=== PATIENT | female | born 1985 | race Caucasian/White ===

== ENCOUNTER 2021-03-24 08:28 | Emergency (ER) | payer MEDICAID, SELFPAY ==
[2021-03-24 08:29] VITALS: BP 148/111; PULSE 83; RESP 18; TEMP 36.6; O2SAT 99; BMI 32.3
--- NOTE | 2021-03-24 08:48 | RAD_ITS ---
STUDY: X-RAY - RIGHT WRIST REASON FOR EXAM: Female, 35 years old. Injury/Pain TECHNIQUE: 3 view(s) of the wrist were obtained. COMPARISON: None. FINDINGS: Normal visualized distal radius and ulna. Normal radiocarpal articulation. Normal distal radioulnar articulation. Normal carpal bones. Normal carpal articulations. Normal carpometacarpal articulation of the thumb. Normal second through fifth carpometacarpal articulations. Normal visualized metacarpal bones. The soft tissue structures are unremarkable. RAD/Wrist min 3 Views IMPRESSION: Normal x-ray examination of the wrist. Electronically Signed: Austin Price MD at 9:34 EDT , Service support ,
--- NOTE | 2021-03-24 08:49 | EX.ED.UPPERE ---
HPI History of Present Illness Chief Complaint: Upper Extremity Injury Informant: patient Onset/Context/Timing Onset: Yesterday Context: Gradual Onset Timing: Continuous Quality of Pain: Stabbing and Throbbing Worsened by: Nothing Relieved by: Nothing Associated Symptoms Associated Symptoms: Positive for Parasthesia Narrative Narrative: Patient presents with pain into her right wrist and right hand area that began yesterday. Patient states the pain is worse today. Patient denies any trauma or injury. Patient states the pain radiates up her arm to her shoulder. Patient admits to some numbness and tingling over her right hand and all of her fingers. Patient states she is unable to make a fist due to the pain. Patient denies any true weakness however. PFSH PFSH no medical history Home Medications naproxen 500 mg PO BID PRN #20 tab 03/24/21 [Rx Last Taken Unknown] Allergy/AdvReac Type Severity Reaction Status Date / Time No Known Allergies Allergy Verified 03/24/21 08:31 Surgical History (Updated 03/24/21 @ 08:[address] Sree Auguste DO) History of section Social History Smoking Status: Current every day smoker ROS ROS ED Constitutional Constitutional ED: Denies chills or fever(s) Eyes Eyes: Denies blurry vision or change in vision ENT ENT ED: Denies rhinorrhea or sore throat Cardiovascular Cardiovascular: Denies chest pain or palpitations Respiratory/Chest Respiratory/Chest: Denies cough or dyspnea Gastrointestinal Gastrointestinal: Denies nausea or vomiting Genitourinary Genitourinary ED: Denies dysuria or hematuria Musculoskeletal Musculoskeletal: Denies back pain or neck pain Integumentary Denies abscess or rash Neurologic Neurologic: Reports paresthesias RUE (Right hand); Denies headache(s) or weakness Allergic/Immunologic Allergic/Immunologic ED: Denies mouth swelling or urticaria EXAM Physical Exam Const Vital Signs: 03/24/21 08:29 Temperature 97.9 F Temperature Source Temporal Pulse Rate 83 Respiratory Rate 18 Blood Pressure 148/111 H Blood Pressure Mean 123 Pulse Ox 99 Oxygen Delivery Method Room Air Positive well nourished, well developed and obese General Appearance ED: well developed Nutritional Appearance: obese Neck full ROM and supple Extremity Extremity Narrative: There is tenderness over the right wrist and right hand area. There is no edema or ecchymosis. There is no deformity noted. Range of motion was limited all motions of the right hand and wrist secondary to pain. There is a positive Phalen's test. There is positive Tinel's sign at the wrist over the median nerve. There is also a positive Tinel's sign at the elbow over the ulnar nerve. Radial pulses are equal bilaterally. Capillary refill is less than 2 seconds in all digits. Neuro oriented x3, CN's II-XII intact bilaterally, moves all extremities and no focal motor deficits Neuro Narrative: There is decreased sensation to light touch in the right hand distal to the wrist including the radial, median, and ulnar areas. Sensorium / Orientation: alert Sensory Exam: sensory level loss detected Psych Mood & Affect: anxious MDM MDM MDM Narrative Medical decision making narrative: Patient was given a dose of [place] here. X-rays of the right wrist were obtained. There are 3 views. On my interpretation, there is no acute fracture. There is no dislocation. There is minimal soft tissue swelling. Radiologist also interpreted the x-rays and agrees. Patient was given a Velcro wrist splint. Patient was given a prescription for Naprosyn. Patient was instructed to ice and elevate the right wrist. Patient was instructed to follow-up with her primary care physician in 5 to 7 days for further evaluation. Patient understood and was agreeable with the plan. All questions were answered. Discharge Plan Triage Chief Complaint: Upper Extremity Injury ED Provider: Sree Auguste Dx/Rx/DC Orders Clinical Impression: Carpal tunnel syndrome of right wrist Prescriptions: New naproxen 500 MG tablet 500 mg PO BID PRN Qty: 20 RF: 0 Primary Care Provider: Reina Frye Referrals: Reina Frye MD [Primary Care Provider] - 3-5 Days Disposition Disposition: Home, self care
[2021-03-24] MEDS: HYDROcodone Bitartrate/Apap 5/325 Tablet PO (08:52)
[2021-03-24 10:02] VITALS: PULSE 84; RESP 16; O2SAT 98
== END 2021-03-24 10:03 | disposition home or self-care (01) ==
LOC: ED 09:22
PROVIDERS: Emergency Provider Emergency Medicine; PCP Internal Medicine
DX: G56.01 Carpal tunnel syndrome, right upper limb (principal); E66.9 Obesity, unspecified; F17.200 Nicotine dependence, unspecified, uncomplicated
CPT/HCPCS: 73110; 99283

== ENCOUNTER → 2023-10-20 | Outpatient (CLI) | payer MEDICAID, SELFPAY ==
[2023-10-20 16:13] LABS: Absolute Lymphocyte Count 0.96 X10^3/uL (0.83-4.51); Absolute Neutrophil Count 3.3 X10^3/uL (2.0-7.7); Basophil# 0.01 X10^3/uL; Basophil% 0.2 % (0-1); Eosinophil# 0.13 X10^3/uL; Eosinophils% 2.8 % (0-5); Hematocrit 41.9 % (37-47); Hemoglobin 13.6 g/dL (12.0-15.0); Lymphocyte # 0.96 X10^3/ul (0.83-4.51); Mean Corp Hgb Conc 32.5 g/dL (32-36); Mean Corpuscular Hgb 27.1 pg (27.0-32.0); Mean Corpuscular Volume 83.5 fL (81-99); Monocyte# 0.13 X10^3/uL; Monocyte% 2.8 % (0-10); NRBC Flagged by Analyzer 0 % (0-5); Neutrophil # 3.34 X10^3/uL (2.7-7.7); Platelet Count 501 K/mm3 (150-450); RBC Distribution Width CV 14.8 % (11.6-14.6); Red Blood Count 5.02 M/mm3 (4.2-5.4); White Blood Count 4.6 K/mm3 (4.4-11.0)
[2023-10-20 16:56] LABS: Anion Gap 6 (5-15); BUN 11 mg/dL (7-18); BUN/Creat Ratio 12.6 RATIO (10-20); Calcium,Total 8.5 mg/dL (8.5-10.1); Chloride 108 mmol/L (98-107); Creatinine, Serum 0.88 mg/dL (0.55-1.02); EST Glomerular Filtration Rate 76 mL/min (>60); Est Glom Filt Rate - Afr Amer 93 mL/min (>60); Glucose 100 mg/dL (74-106); Iron 31 ug/dL (50-170); Iron Binding Capacity,Total 345 ug/dL (250-450); Potassium 3.9 mmol/L (3.5-5.1); Sodium Level 141 mmol/L (136-145); Thyroid Stim Hormone (TSH) 4.13 uIU/mL (0.358-3.74)
== END | disposition home or self-care (01) ==
PROVIDERS: Referring Provider Nurse Practitioner Family; Visit Provider Nurse Practitioner Family
DX: M06.9 Rheumatoid arthritis, unspecified (principal); D50.9 Iron deficiency anemia, unspecified; R94.6 Abnormal results of thyroid function studies
CPT/HCPCS: 36415; 80048; 83540; 83550; 84439; 84443; 85025

== ENCOUNTER 2023-12-17 16:58 | Emergency (ER) | payer MEDICAID, SELFPAY ==
[2023-12-17 16:59] VITALS: BP 126/96; PULSE 96; RESP 18; TEMP 35.9; O2SAT 100; BMI 28.8
--- OUTSIDE RECORDS SUMMARY | 2023-12-17 19:46 | XMS RPT_ITS | CCD ---
Author Name Unknown Address [facility] [employer] [facility] [address] [place] [id number]
== END 2023-12-17 19:40 | disposition left against medical advice (07) ==
LOC: ED 19:42
DX: M06.9 Rheumatoid arthritis, unspecified (principal); Z53.21 Procedure and treatment not carried out due to patient leaving prior to being seen by health care provider

== ENCOUNTER 2024-10-28 20:44 | Emergency (ER) | payer MEDICAID, SELFPAY ==
[2024-10-28 20:45] VITALS: BP 161/88; PULSE 95; RESP 18; TEMP 36; O2SAT 97
--- NOTE | 2024-10-28 22:46 | EX.ED.DYSGE1 ---
HPI History of Present Illness Chief Complaint: Other, Pain/Inj Informant: patient Narrative Narrative: Patient is a 39-year-old female with past medical history of rheumatoid arthritis. She states she was on Humira and this was controlling her symptoms well. Unfortunately she states she lost her job and her insurance and has not been able to afford her Humira for almost a year. She denies any recent trauma or sick symptoms but states she is having a increase in joint pain. She states when this typically occurs she does well with prednisone. She states that [id number] medications are not helping and therefore with her report of a RA flare and desire for steroids presents for evaluation [facility] Home Medications ?Medication ?Instructions ?Recorded ?Last Taken ?Type naproxen 500 mg tablet 500 mg PO BID PRN #20 tabs 03/24/21 Unknown Rx prednisone 10 mg tablet 10 mg PO DAILY #63 tabs 10/28/24 Unknown Rx Allergy/AdvReac Type Severity Reaction Status Date / Time No Known Allergies Allergy Verified 10/28/24 20:45 Surgical History History of section Social History Smoking Status: Current every day smoker tobacco type: cigarettes ROS ROS ED Constitutional Constitutional ED: Denies chills or fever(s) Eyes Eyes: Denies blurry vision or change in vision ENT ENT ED: Denies sore throat Cardiovascular Cardiovascular: Denies chest pain Respiratory/Chest Respiratory/Chest: Denies cough or dyspnea Gastrointestinal Gastrointestinal: Denies abdominal pain, diarrhea, nausea or vomiting Genitourinary Genitourinary ED: Denies dysuria Musculoskeletal Musculoskeletal: Reports arthralgias Integumentary Denies rash Neurologic Neurologic: Denies headache(s), paresthesias or weakness Hematologic/Lymphatic Hematologic/Lymphatic: Denies easy bleeding or easy bruising EXAM Physical Exam Const Vital Signs: 10/28/24 20:45 10/28/24 21:59 Temperature 96.8 F L Temperature Source Temporal Pulse Rate 95 Respiratory Rate 18 Respiratory Pattern Normal Blood Pressure 161/88 H Blood Pressure Mean 112 Pulse Ox 97 Oxygen Delivery Method Room Air Positive well nourished and well developed General Appearance ED: well developed; Negative for pallor HEENT HEENT Narrative: Normocephalic atraumatic No tongue or lip swelling no oral lesions no airway edema or compromise Eyes PERRL and EOMs intact bilaterally Neck supple Resp normal respiratory effort and clear to auscultation bilaterally Cardio regular rate and regular rhythm Extremity Extremity Narrative: Patient has derangement of her PIP and DIP joints consistent with RA. No joint effusions noted no overlying erythematous changes to suggest infection Neuro oriented x3, CN's II-XII intact bilaterally and no sensory deficits noted Sensorium / Orientation: alert Psych mental status grossly normal Skin no rashes or lesions noted and no wounds General Skin Exam: Negative for jaundice or pallor MDM MDM MDM Narrative Medical decision making narrative: Patient presented to the ER hypertensive otherwise with stable vital. She reported longstanding history of mental arthritis and had been off her medication to control it. She denies any trauma and by exam there is no signs of injury or secondary infection such as cellulitis or abscess. There is no unilateral joint swelling or effusion to suggest septic joint. Therefore this time I do feel patient is having a RA flare which will respond to steroids but as she does not have signs of infection or bony injury there is no need for further workup and she is otherwise safe for discharge History & Record Review Discussion w/independent historian: Patient Discharge Plan Triage Chief Complaint: Other, Pain/Inj ED Provider: Caleb Duncan Dx/Rx/DC Orders Clinical Impression: Rheumatoid arthritis flare Instructions: ED Rheumatoid Arthritis Prescriptions: New prednisone 10 mg tablet 10 mg PO DAILY Qty: 63 0RF Rx Instructions: 60 mg p.o. daily ?3 days, 50 mg p.o. daily ?3 days, 40 mg p.o. daily ?3 days, 30 mg p.o. daily ?3 days, 20 mg p.o. daily ?3 days, 10 mg p.o. daily ?3 days. No Action naproxen 500 MG tablet 500 mg PO BID PRN Qty: 20 0RF Primary Care Provider: Lois Rudd Referrals: Lois Rudd, [employer] [Primary Care Provider] - Activity Restrictions/Additional Instructions: Please take the steroid taper as directed to reduce your inflammation and therefore pain from rheumatoid arthritis. You can continue with Tylenol and/or Motrin as needed for improved pain relief. Return to the ER should you have any further concerns Print Language: Chinese Disposition Disposition: Home, Self Care Discharge Date/Time: 10/28/24 23:26
[2024-10-28] MEDS: Triamcinolone Acetonide 40 MG/ML Vial 80 MG IM (23:13)
[2024-10-28 23:14] VITALS: PULSE 89; RESP 18; TEMP 36.1; O2SAT 94
== END 2024-10-28 23:26 | disposition home or self-care (01) ==
PROVIDERS: Emergency Provider Emergency Medicine; PCP Nurse Practitioner Family; Visit Provider Emergency Medicine
DX: M06.9 Rheumatoid arthritis, unspecified (principal); T39.4X6A Underdosing of antirheumatics, not elsewhere classified, initial encounter; F17.210 Nicotine dependence, cigarettes, uncomplicated; Z91.141 Patient's other noncompliance with medication regimen due to financial hardship; Z79.1 Long term (current) use of non-steroidal anti-inflammatories (NSAID)
CPT/HCPCS: 99282